=== PATIENT | male | born 1955 | race Asian ===

== ENCOUNTER 2016-03-31 10:00 | Emergency (ER) | payer OTHER ==
--- NOTE | 2016-03-31 10:07 | PDOC ---
History of Present Illness - General Chief Complaint: Bite Stated Complaint: DOG BITE RT THUMB Time Seen by Provider: 03/31/16 10:04 - History of Present Illness Initial Comments: 03/31/16 11:05 Patient is a 60-year-old male with no past medical history presenting to the ED today after getting bit by a dog. 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 He was taking care of a dog that got hit by a car and the dog bit the patient out of fear. Patient states the dog was acting appropriately and denies that the dog was foaming at the mouth. He reports that the dog bit him on his right thumb. Patient is able to move all all 5 fingers of the right hand. He denies numbness tingling. The dog is house pet, however he states he is not sure of the dog's vaccination status. He is currently up-to-date on his vaccines tetanus shot back in 2013. Patient has no other complaints at this time. Past History - Past Medical History Allergies/Adverse Reactions: Allergies Allergy/AdvReac Type Severity Reaction Status Date / Time codeine AdvReac Verified 03/31/16 10:04 OPIOIDS AdvReac Uncoded 03/31/16 10:04 Home Medications: Ambulatory Orders Amoxicillin/Potassium Clav [Augmentin 875-125 Tablet] 1 each PO BID #14 tablet 03/31/16 Diabetes: No HTN: No - Immunization History Td Vaccination: (UNK) - Psycho/Social/Smoking Cessation Hx Anxiety: No Suicidal Ideation: No Smoking Status: No Smoking History: Unknown if ever smoked Have you smoked in the past 12 months: No Number of Cigarettes Smoked Daily: 0 Hx Alcohol Use: No Drug/Substance Use Hx: No Substance Use Type: None *Physical Exam - Physical Exam Comments: 03/31/16 11:11 GENERAL: Well developed, well nourished. Awake and alert. No acute distress. Pt. AAOx3 breathing easily sitting on exam chair. CARDIOVASCULAR: Regular rate and rhythm. No murmurs, rubs, or gallops. Distal pulses are 2+ and symmetric. PULMONARY: No evidence of respiratory distress. Lungs clear to auscultation bilaterally. No wheezing, rales or rhonchi. MUSCULOSKELETAL Normal range of motion at all joints. No bony deformities or tenderness. No CVA tenderness. SKIN: Bite cm present on the R thumb. Dried blood is present around the bite cm. 4 abrasions measuring less than 1cm in length are identified. No puncture wounds identified. PMS is intact in the R hand. Warm and dry. Normal capillary refill. No rashes. No jaundice. NEUROLOGICAL: Alert, awake, appropriate. Cranial nerves 2-12 intact. No deficits to light touch and temperature in face, upper extremities and lower extremities. No motor deficits in the in face, upper extremities and lower extremities. Normoreflexic in the upper and lower extremities. Normal speech. Toes are down- going bilaterally. Gait is normal without ataxia. PSYCHIATRIC: Cooperative. Good eye contact. Appropriate mood and affect. 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 The wound itself is a very superficial and there is dried blood around the area. Bleeding is controlled at this time. Patient was able to clean the wound at work. He is able to move all 5 fingers. Will have the patient clean the wound again in the ED and will apply Bacitracin and a bandage to the area. We'll prescribe antibiotics at this time. Rabies counseling was given. Pt. does not want prophylaxis for rabies at this time. He will be able to monitor the dog. Patient knows to return to the ED if exhibiting new fevers, chills, flu-like, symptoms or altered mental status as these could be signs of rabies. Wound was irrigated thoroughly and covered with Bacitracin. A 4x4 was used to cover the wound. One dose of Augmentin given in the ED today. Pt. is able to go back to work and advised to wear gloves for the remainder of the day. We'll discharge at this time *DC/Admit/Observation/Transfer Diagnosis at time of Disposition: Dog bite Qualifiers: Encounter type: initial encounter Qualified Code(s): W54.0XXA - Bitten by dog, initial encounter - Discharge Dispostion Disposition: HOME Condition at time of disposition: Stable Admit: No - Prescriptions Prescriptions: Amoxicillin/Potassium Clav [Augmentin 875-125 Tablet] 1 each PO BID #14 tablet - Patient Instructions Printed Discharge Instructions: Rabies, DI for Rabies Vaccine, DI for Dog Bite - Post Discharge Activity Work/School Note: Back to Work
[2016-03-31 10:12] VITALS: BP 112/74; PULSE 72; TEMP 97.9; BMI 18.8
--- NOTE | 2016-03-31 10:37 | PDOC ---
*Physical Exam - Vital Signs Last Vital Signs Temp Pulse Resp BP Pulse Ox 97.9 F 72 18 112/74 100 03/31/16 10:00 03/31/16 10:00 03/31/16 10:00 03/31/16 10:00 03/31/16 10:00 Medical Decision Making - Medical Decision Making 03/31/16 10:55 This is a 60-year-old male presenting to the emergency department due to dog bite. Patient was bitten on the right thumb by a [place] which was brought in due to trauma Patient washed the area right away. No limitations in range of motion. Dog will be sent to another hospital and therefore can be observed. Wound was dressed with bacitracin. Given the dog will be observed and does have an older, no indication for rabies vaccinations at this time for this incident. Will discharge on Augmentin. Return to emergency department for signs of infection Pt seen by Midlevel Provider under my direct supervision Pt interviewed and examined I agree with plan as outlined by Midlevel Provider *DC/Admit/Observation/Transfer Diagnosis at time of Disposition: Dog bite Qualifiers: Encounter type: initial encounter Qualified Code(s): W54.0XXA - Bitten by dog, initial encounter - Discharge Dispostion Disposition: HOME Condition at time of disposition: Improved Admit: No - Prescriptions Prescriptions: Amoxicillin/Potassium Clav [Augmentin 875-125 Tablet] 1 each PO BID #14 tablet - Patient Instructions Printed Discharge Instructions: DI for Dog Bite, Rabies, DI for Rabies Vaccine - Post Discharge Activity Work/School Note: Back to Work
[2016-03-31] MEDS ORDERED: AMOX TR/POT CLAV 875MG/125MG TABLETS (FP) PO ONE (10:54)
[2016-03-31] MEDS ORDERED: AMOX TR/POT CLAV 875MG/125MG TABLETS (FP) ONE (10:57)
== END 2016-03-31 11:08 | disposition home or self-care (01) ==
LOC: FER 10:00
DX: S61.051A Open bite of right thumb without damage to nail, initial encounter (principal); W54.0XXA Bitten by dog, initial encounter; Y93.89 Activity, other specified; Y92.238 Other place in hospital as the place of occurrence of the external cause; Y99.0 Civilian activity done for income or pay
CPT/HCPCS: 99284-25

== ENCOUNTER 2017-05-23 12:03 | Emergency (ER) | payer OTHER ==
[2017-05-23 12:14] VITALS: BP 114/70; PULSE 64; TEMP 97.7; BMI 18.8
[2017-05-23] MEDS ORDERED: AMOX TR/POT CLAV 875MG/125MG TABLETS (FP) PO ONE (12:36)
[2017-05-23] MEDS ORDERED: AMOX TR/POT CLAV 875MG/125MG TABLETS (FP) ONE (12:40)
--- NOTE | 2017-05-23 12:42 | PDOC ---
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 The dog reportedely has been vaccinated for rabies. ) Exam Limitations: No Limitations - History of Present Illness Occurred: reports: just prior to arrival Severity: reports: mild, moderate Pain Location: reports: upper extremity Method of Injury: Yes: other Past History - Travel Traveled outside of the country in the last 30 days: No Close contact w/someone who was outside of country & ill: No - Past Medical History Allergies/Adverse Reactions: Allergies Allergy/AdvReac Type Severity Reaction Status Date / Time codeine AdvReac Verified 05/23/17 12:07 OPIOIDS AdvReac Uncoded 05/23/17 12:08 Home Medications: Ambulatory Orders Amoxicillin/Potassium Clav [Augmentin 875-125 Tablet] 1 each PO BID #14 tablet 05/23/17 COPD: Yes Diabetes: No HTN: No - Immunization History Td Vaccination: (UNK) Immunization Up to Date: Yes - Suicide/Smoking/Psychosocial Hx Smoking Status: No Smoking History: Never smoked Have you smoked in the past 12 months: No Number of Cigarettes Smoked Daily: 0 Information on smoking cessation initiated: No Hx Alcohol Use: Yes (RARE) Drug/Substance Use Hx: No Substance Use Type: Alcohol Review of Systems - Review of Systems Able to Perform ROS?: Yes Is the patient limited [place] Citizen proficient: Yes Constitutional: No: Symptoms Reported, See HPI, Chills, Diaphoresis, Fever, Loss of Appetite, Malaise, Night Sweats, Weakness, Weight Stable, Unintentional Wgt. Loss, Unexplained wgt Loss, Other HEENTM: No: Symptoms Reported, See HPI, Eye Pain, Blurred Vision, Tearing, Recent change in vision, Double Vision, Cataracts, Ear Pain, Ocular Prothesis, Ear Discharge, Nose Pain, Nose Congestion, Tinnitus, Nose Bleeding, Hearing Loss , Throat Pain, Throat Swelling, Mouth Pain, Dental Problems, Difficulty Swallowing, Mouth Swelling, Other Respiratory: No: Symptoms reported, See HPI, Cough, Orthopnea, Shortness of Breath, SOB with Exertion, SOB at Rest, Stridor, Wheezing, Productive cough, Hemoptysis, Other Integumentary: Yes: Symptoms Reported, Other *Physical Exam - Vital Signs Last Vital Signs Temp Pulse Resp BP Pulse Ox 97.7 F 64 16 114/70 100 05/23/17 12:07 05/23/17 12:07 05/23/17 12:07 05/23/17 12:07 05/23/17 12:07 - Physical Exam General Appearance: Yes: Nourished, Appropriately Dressed, Mild Distress HEENT: positive: ROGER Neck: positive: Supple Cardiovascular: positive: Regular Rhythm Musculoskeletal: positive: Normal Inspection Extremity: positive: Normal Capillary Refill, Normal Range of Motion Integumentary: positive: Normal Color, Dry, Warm, Other (superficial abrasion, laceration on the forearm) Neurologic: positive: sexologist II-XII NML intact, Fully Oriented, Alert, Normal Mood/ Affect, Normal Response. negative: Numbness, Sensory Deficit Medical Decision Making - Medical Decision Making Superficial wound cleansed, dressing applied, Patient reported of being UTD for DTP. Romain animal reportedely has been immunized for rabies. Follow up instructions given, including the [facility] 05/25/17 13:50 *DC/Admit/Observation/Transfer Diagnosis at time of Disposition: Dog bite Qualifiers: Encounter type: initial encounter Qualified Code(s): W54.0XXA - Bitten by dog, initial encounter - Discharge Dispostion Disposition: HOME Condition at time of disposition: Stable Admit: No - Prescriptions Prescriptions: Amoxicillin/Potassium Clav [Augmentin 875-125 Tablet] 1 each PO BID #14 tablet - Referrals - Patient Instructions Printed Discharge Instructions: How to Care for a Domestic Animal Bite, DI for Animal Bites - Post Discharge Activity
== END 2017-05-23 12:54 | disposition home or self-care (01) ==
LOC: FER 12:03
DX: S51.852A Open bite of left forearm, initial encounter (principal); W55.01XA Bitten by cat, initial encounter; Y93.89 Activity, other specified; Y92.9 Unspecified place or not applicable; J44.9 Chronic obstructive pulmonary disease, unspecified
CPT/HCPCS: 99281-25